=== PATIENT | female | born 1985 | race Caucasian/White ===

== ENCOUNTER 2018-04-03 11:57 | Emergency (ER) | payer OTHER ==
[~2018-04-03] VITALS: Ht 167.6 cm; Wt 106.6 kg
--- NOTE | 2018-04-03 11:57 | NUR ---
Patient BIBA BLS, transferred to bed 6. RN evaluating patient at bedside.
[2018-04-03 12:00] VITALS: BP 153/73
[2018-04-03] MEDS ORDERED: RISP0.5T3 PO (12:09)
[2018-04-03] MEDS ORDERED: COM5 PO (12:09)
[2018-04-03] MEDS ORDERED: VITE200 PO (12:09)
[2018-04-03] MEDS ORDERED: BENZ1TAB42 PO (12:09)
[2018-04-03] MEDS ORDERED: GLIP10TA3 PO (12:09)
[2018-04-03] MEDS ORDERED: METF1000 PO (12:09)
[2018-04-03] MEDS ORDERED: METF500T PO (12:09)
--- NOTE | 2018-04-03 12:10 | NUR ---
32F BIBA WITH C/O BL LOWE BACK S/P INJURY TODAY. PATIENT STATES ANOTHER GUEST FROM HOME WAS PLAYING AROUND BY CLIMBING HER BACK. PATIENT STATES SHE HEARD A POP. PATIENT REPORTS OF 10/10 "SHARP" CONSTANT BL LOWER BACK PAIN. PT ABLE TO ABLE ALL FOUR EXTREMITIES. PT DENIES ANY NUMBNESS/TINGLING TO BL LOWER EXTREMITIES. NO URINE OR BOWEL INCONTINENCE NOTED. PT IS AOX4. GCS=15. RR ARE EVEN AND UNLABORED. VSS. AWAITING ER MD ROGER. PATIENT PROVIDED WITH WARM BLANKET. WILL CONTINUE TO MONITOR.
--- NOTE | 2018-04-03 13:22 | NUR ---
er md schmid by bedside examining patient
[2018-04-03] MEDS ORDERED: IBUPROFEN 600 MG TAB PO ONE (13:40)
[2018-04-03 15:12] VITALS: BP 153/73
--- NOTE | 2018-04-03 15:13 | NUR ---
Patient discharged with v/s stable. Written and verbal after care instructions given and explained. Patient alert, oriented and verbalized understanding of instructions. Ambulatory with steady gait. All questions addressed prior to discharge. ID band removed. Patient advised to follow up with PMD. Rx of MOTRIN AND FLEXERIL given. Patient educated on indication of medication including possible reaction and side effects. Opportunity to ask questions provided and answered.
== END 2018-04-03 15:13 | disposition home or self-care (01) ==
LOC: MED 11:57
DX: M54.5 Low back pain (principal); E11.9 Type 2 diabetes mellitus without complications
CPT/HCPCS: 99283

== ENCOUNTER 2020-07-19 12:46 | Emergency (ER) | payer OTHER ==
[~2020-07-19] VITALS: Ht 165.1 cm; Wt 90.7 kg
[~2020-07-19 12:46] MED LIST: BENZ-203 PO; COM5 PO; GLIP10TA3 PO; METF1000 PO; METF500T PO; RISP0.5T3 PO; VITE200 PO
[2020-07-19 13:15] VITALS: BP 137/75
--- NOTE | 2020-07-19 13:23 | NUR ---
wait at lobby.
--- NOTE | 2020-07-19 14:28 | NUR ---
bib from [facility] c /o left ankle pain, swollen s/p twisted & fall x yesterday. med hx: schizophrenia, obesity
[2020-07-19] MEDS ORDERED: IBUPROFEN 400 MG TAB PO ONE (14:30)
--- NOTE | 2020-07-19 14:46 | NUR ---
APPLIED POSTERIOR SHORT LEG TO LEFT ANKLE WITHOUT ANY ISSUES
--- NOTE | 2020-07-19 14:50 | NUR ---
+cms, skin warm, dry, and intact after application of splint. Pt verbalizes and return demonstrates use of crutches
[2020-07-19 14:51] VITALS: BP 137/75
--- NOTE | 2020-07-19 14:51 | NUR ---
Patient discharged with v/s stable. Written and verbal after care instructions given and explained. Patient alert, oriented and verbalized understanding of instructions. Ambulatory with steady gait. All questions addressed prior to discharge. ID band removed. Patient advised to follow up with PMD. Rx of Naprosyn given. Patient educated on indication of medication including possible reaction and side effects. Opportunity to ask questions provided and answered. Pt informed to follow up with orthopedic surgeon
== END 2020-07-19 14:51 | disposition home or self-care (01) ==
LOC: MED 12:46
DX: S82.832A Other fracture of upper and lower end of left fibula, initial encounter for closed fracture (principal); E11.9 Type 2 diabetes mellitus without complications; F20.9 Schizophrenia, unspecified; F17.200 Nicotine dependence, unspecified, uncomplicated; Z79.84 Long term (current) use of oral hypoglycemic drugs; Z79.899 Other long term (current) drug therapy; X58.XXXA Exposure to other specified factors, initial encounter; Y93.89 Activity, other specified; Y92.89 Other specified places as the place of occurrence of the external cause; Y99.8 Other external cause status
CPT/HCPCS: 29515; 73610; 99283